=== PATIENT | male | born 1975 | race Hispanic/Latino ===

== ENCOUNTER 2021-04-12 12:09 | Inpatient (IN) | payer SELFPAY ==
[~2021-04-12] VITALS: Ht 167.6 cm; Wt 87.6 kg
[2021-04-12 12:58] LABS: BASOPHILS % (AUTO) 0.6 % (0.0-5.0); EOSINOPHILS % (AUTO) 0.7 % (0.0-8.0); HEMATOCRIT 44.7 % (42-54); LYMPHOCYTES % (AUTO) 9.2 % (21.0-51.0); MEAN CORPUSCULAR HEMOGLOBIN 31.3 pg (27.0-33.0); MEAN CORPUSCULAR HGB CONC 32.9 g/dL (32.0-36.0); MEAN CORPUSCULAR VOLUME 95.3 fL (79-99); MONOCYTES % (AUTO) 5.3 % (3.0-13.0); NEUTROPHILS % (AUTO) 83.3 % (40.0-77.0); PLATELET COUNT (AUTO) 310 K/uL (130-400); RED BLOOD CELL COUNT(AUTO) 4.69 MIL/uL (4.50-6.20); RED CELL DISTRIBUTION WIDTH 12.9 % (11.0-15.5); WHITE BLOOD COUNT (AUTO) 14.4 K/uL (4.8-10.8)
[2021-04-12 13:24] LABS: CARBON DIOXIDE 24 mmol/L (21-32); CHLORIDE 103 mmol/L (101-111); CREATININE 1.1 mg/dL (0.5-1.5); GLOMERULAR FILTR. RATE CALC 77 mL/min (>60); GLUCOSE,RANDOM 105 mg/dL (70-105); POTASSIUM 4.1 mmol/L (3.5-5.1); SODIUM SERUM 139 mmol/L (136-145); UREA NITROGEN, BLOOD 9 mg/dL (7-18)
[2021-04-12 13:31] LABS: APPEARANCE,URINE Clear (CLEAR); BILIRUBIN,URINE Negative (NEGATIVE); COLOR,URINE Yellow (YELLOW); GLUCOSE, URINE (UA) Negative (NEGATIVE); KETONES,URINE Negative (NEGATIVE); LEUKOCYTE ESTERASE ,URINE Negative (NEGATIVE); NITRATE,URINE Negative (NEGATIVE); OCCULT BLOOD,URINE Moderate (NEGATIVE); PROTEIN,URINE POS 2+ mg/dL (NEGATIVE)
[2021-04-12 13:36] LABS: ALANINE AMINOTRANSFERASE 43 U/L (12-78); ALBUMIN 4.3 g/dL (3.5-5.0); ALCOHOL, BLOOD < 3 mg/dL (0-10); ASPARTATE AMINOTRANSFERASE 43 U/L (10-37); BILIRUBIN,TOTAL 1.8 mg/dL (0.2-1.0); TOTAL PROTEIN, SERUM 8.3 g/dL (6.0-8.3)
[2021-04-12 13:37] LABS: ACETAMINOPHEN < 1 mcg/mL (10-29); SALICYLATE < 2.8 mg/dL (2.8-20.0)
[2021-04-12 13:38] LABS: CREATINE KINASE, TOTAL 717 U/L (21-232)
[2021-04-12 13:58] LABS: BACTERIA,URINE Rare /HPF (None Seen); RBC,URINE 0-1 /HPF (0-1); SQUAMOUS EPITHELIAL CELL,UR Rare /HPF (0-2); WBC,URINE 0-1 /HPF (0-1)
[2021-04-12] MEDS: LEVETIRACETAM 1,500 MG in 0.9%NACL 100ML 100 ML IV SCH ×2 (14:00→22:12)
[2021-04-12 15:35] LABS: AMPHET/METH SCREEN,URINE NEGATIVE (NEGATIVE); BARBITURATE SCREEN, URINE NEGATIVE (NEGATIVE); BENZODIAZEPINES SCREEN,URINE NEGATIVE (NEGATIVE); CANNABINOID SCREEN,URINE NEGATIVE (NEGATIVE); COCAINE SCREEN,URINE POSITIVE (NEGATIVE); OPIATE SCREEN,URINE NEGATIVE (NEGATIVE); PHENCYCLIDINE SCREEN,URINE NEGATIVE (NEGATIVE)
[2021-04-12] MEDS ORDERED: DEXAMETHASONE SOD PHOSPHATE 4 MG/ML 1ML VIAL IVP SCH (18:30)
[2021-04-12] MEDS ORDERED: HYDRALAZINE 20MG/ML VIAL IV SCH (18:30)
[2021-04-12] MEDS ORDERED: 0.9%NACL 100ML 100 ML ONE (22:05)
[2021-04-12] MEDS ORDERED: LEVETIRACETAM 500 MG/5 ML SD VIAL IV ONE (22:05)
[2021-04-13] MEDS ORDERED: MORPHINE 4 MG SYG IV PRN (02:00)
[2021-04-13] MEDS ORDERED: ONDANSETRON 4MG INJ IV PRN (02:00)
[2021-04-13] MEDS ORDERED: MORPHINE 2 MG SYG IV PRN (02:00)
[2021-04-13] MEDS: 0.9%NACL 1000ML 1,000 ML IV SCH ×3 (02:30→22:00)
[2021-04-13 03:55] VITALS: BP 110/83
[2021-04-13 07:33] LABS: HEMATOCRIT 44.2 % (42-54); MEAN CORPUSCULAR HEMOGLOBIN 31.7 pg (27.0-33.0); MEAN CORPUSCULAR HGB CONC 32.6 g/dL (32.0-36.0); MEAN CORPUSCULAR VOLUME 97.4 fL (79-99); RED BLOOD CELL COUNT(AUTO) 4.54 MIL/uL (4.50-6.20); RED CELL DISTRIBUTION WIDTH 12.8 % (11.0-15.5); WHITE BLOOD COUNT (AUTO) 10.7 K/uL (4.8-10.8)
[2021-04-13 07:58] LABS: POTASSIUM 3.9 mmol/L (3.5-5.1)
[2021-04-13 08:00] VITALS: BP 121/66
[2021-04-13] MEDS: FAMOTIDINE 20MG VIAL IV SCH ×2 (11:04→20:36)
[2021-04-13] MEDS: LEVETIRACETAM 500 MG in 0.9%NACL 100ML 100 ML IV SCH ×2 (11:04→20:36)
[2021-04-13 12:00] VITALS: BP 114/60
[2021-04-13 16:00] VITALS: BP 122/70
[2021-04-13 20:00] VITALS: BP 127/73
[2021-04-14] VITALS: BP 109/51
[2021-04-14 04:00] VITALS: BP 108/71
[2021-04-14] MEDS ORDERED: COMPOUND IV MISC 1 EACH IVSOLN MISC PRN (09:30)
== END 2021-04-14 05:35 | disposition short-term general hospital (02) | DRG 54 ==
LOC: EDH 12:09 → EDHIP 12:10 → 4DH 04-13 03:36
PROVIDERS: ADMIT Hospitalist; ATTEND Hospitalist
DX: D32.9 Benign neoplasm of meninges, unspecified (principal); G93.6 Cerebral edema; R56.9 Unspecified convulsions; F14.10 Cocaine abuse, uncomplicated; F17.210 Nicotine dependence, cigarettes, uncomplicated; Z20.822 Contact with and (suspected) exposure to COVID-19
CPT/HCPCS: 36415; 70450; 70553; 71045; 80048; 80053; 80305; 81001; 82550; 84484; 85025; 85027; 86850; 86900; 86901; 87635; 93005; C9803; G0378; G0481; J1100; J1953; J3490; J7030